=== PATIENT | male | born 1975 | race Native Hawaiian/Other Pacific Islander ===

== ENCOUNTER 2018-07-01 08:09 | Emergency (ER) | payer SELFPAY ==
--- NOTE | 2018-07-01 09:33 | XRay Report ---
ROUTINE CHEST, TWO VIEWS: HISTORY: Cough, congestion. There is a small lingular opacity which could represent a very early infiltrate or segmental atelectasis. The remainder of the left lung and right lung are clear. No pleural effusion or pneumothorax. Normal heart and mediastinal structures. Normal bony thorax. IMPRESSION: Subtle lingular opacity. Correlate for early pneumonia. This could also represent segmental atelectasis or scarring.
[2018-07-01 10:39] VITALS: BP 152/109
--- NOTE | 2018-07-01 11:15 | Emergency Department Report ---
- General Chief Complaint: Upper Respiratory Infection Stated Complaint: COUGHING FOR 2 WEEKS Time Seen by Provider: 07/01/18 11:01 Source: patient Mode of arrival: Ambulatory Limitations: No Limitations - History of Present Illness Initial Comments: Patient is a 43 years old male, nontoxic with no significant past medical history. Patient presented to the ER complaining of two-week history of cough, productive with greenish sputum. Patient stated that he has been having chills but no fever. Patient denied any nausea or vomiting. Not any chest pain or shortness of breath. MD Complaint: cough - Related Data Allergies Allergy/AdvReac Type Severity Reaction Status Date / Time No Known Allergies Allergy Unverified 07/01/18 08:44 ED Review of Systems ROS: Stated complaint: COUGHING FOR 2 WEEKS Other details as noted in HPI Comment: All other systems reviewed and negative Constitutional: chills. denies: fever Respiratory: cough. denies: shortness of breath, SOB with exertion, wheezing Cardiovascular: denies: chest pain, palpitations Gastrointestinal: denies: abdominal pain, nausea, vomiting Musculoskeletal: denies: back pain Neurological: denies: headache, weakness ED Past Medical Hx - Past Medical History Previous Medical History?: No - Surgical History Past Surgical History?: Yes Additional Surgical History: tonsillectomy - Social History Smoking Status: Unknown if ever smoked ED Physical Exam - General Limitations: No Limitations General appearance: alert, in no apparent distress - Head Head exam: Present: atraumatic, normocephalic, normal inspection - Eye Eye exam: Present: normal appearance - ENT ENT exam: Present: normal exam, normal orophraynx, mucous membranes moist - Neck Neck exam: Present: normal inspection, full ROM. Absent: tenderness, meningismus, lymphadenopathy, thyromegaly - Respiratory Respiratory exam: Present: normal lung sounds bilaterally. Absent: respiratory distress, wheezes, rales - Cardiovascular Cardiovascular Exam: Present: regular rate, normal rhythm, normal heart sounds - GI/Abdominal GI/Abdominal exam: Present: soft, normal bowel sounds. Absent: distended, tenderness, guarding, rebound, rigid, organomegaly, mass, bruit, pulsatile mass - Extremities Exam Extremities exam: Present: normal inspection, full ROM, normal capillary refill. Absent: pedal edema, calf tenderness - Back Exam Back exam: Present: normal inspection, full ROM. Absent: tenderness, CVA tenderness (R), CVA tenderness (L), muscle spasm, paraspinal tenderness, vertebral tenderness - Neurological Exam Neurological exam: Present: alert, oriented X3, CN II-XII intact, normal gait, reflexes normal - Skin Skin exam: Present: warm, intact, normal color ED Course Vital Signs 07/01/18 07/01/18 08:39 10:37 Temperature 98.8 F 98.4 F Pulse Rate 90 88 Respiratory 16 17 Rate Blood Pressure 133/96 152/109 [Left] O2 Sat by Pulse 100 97 Oximetry ED Medical Decision Making - Radiology Data Radiology results: report reviewed Chest x-ray show lingular opacity which may represent early pneumonia. - Medical Decision Making Patient prescribed Zithromax and Robitussin. I started patient on lisinopril for high blood pressure and advised him to follow-up with [facility] for further management. Critical care attestation.: If time is entered above; I have spent that time in minutes in the direct care of this critically ill patient, excluding procedure time. ED Disposition Clinical Impression: Pneumonia, Hypertension Disposition: DC-01 TO HOME OR SELFCARE Is pt being admited?: No Condition: Stable Instructions: Community-acquired Pneumonia (ED), Hypertension (ED) Referrals: KIERRA NGUYEN MD [Primary Care Provider] - 3-5 Days Forms: Work/School Release Form(ED)
== END 2018-07-01 11:47 | disposition home or self-care (01) ==
LOC: ED 08:09
DX: J18.9 Pneumonia, unspecified organism (principal); I10 Essential (primary) hypertension; Z90.89 Acquired absence of other organs
CPT/HCPCS: 71046

== ENCOUNTER 2018-09-03 13:36 | Emergency (ER) | payer OTHER ==
--- NOTE | 2018-09-03 14:43 | Event Note ---
ED Screening Note ED Screening Note: recent pna cough green phlegm no fever or chills pmh denies but chart indicates htn quit smoking 5 m ago This initial assessment/diagnostic orders/clinical plan/treatment(s) is/are subject to change based on patients health status, clinical progression and re- assessment by fellow clinical providers in the ED. Further treatment and workup at subsequent clinical providers discretion. Patient/guardian urged not to elope from the ED as their condition may be serious if not clinically assessed and managed. Initial orders include: xray
[2018-09-03 14:56] VITALS: BP 166/106
--- NOTE | 2018-09-03 15:38 | XRay Report ---
PA AND LATERAL CXR HISTORY: Cough. COMPARISON: 07/01/2018 FINDINGS: Cardiomediastinal silhouette: Normal cardiac size. Normal mediastinal contours. Lungs: Normal expansion. The previously described lingular opacity has resolved. A single band of le ft lower lobe subsegmental atelectasis. No airspace disease. No pleural effusions. No pneumothorax. Pulmonary vascularity: Normal. Support hardware: None. Additional findings: None. IMPRESSION: 1. Minimal left lower lobe subsegmental atelectasis. 2. No pneumonia. Signer Name: William Bullard MD Signed: 09/03/2018 3:34 PM Workstation Name: [id number]
[2018-09-03 16:10] LABS: Hematocrit 42.3 % (35.5-45.6); Hemoglobin 14.3 gm/dl (11.8-15.2); Mean Corpuscular HGB Conc 34 % (32-34); Mean Corpuscular Volume 89 fl (84-94); Platelet Count 241 K/mm3 (140-440); Red Blood Count 4.76 M/mm3 (3.65-5.03); Red Cell Distribution Width 14.8 % (13.2-15.2)
[2018-09-03 16:24] LABS: BUN/Creatinine Ratio 22; Blood Urea Nitrogen 20 mg/dL (9-20); Calcium 9.1 mg/dL (8.4-10.2); Hemolysis Index 174
--- NOTE | 2018-09-03 17:54 | Emergency Department Report ---
Minor Respiratory - HPI Chief Complaint: Upper Respiratory Infection Stated Complaint: COUGH Time Seen by Provider: 09/03/18 14:42 Duration: 5 Days Minor Respiratory: Yes Able to Tolerate Fluids, Yes Cough, No Rhinorrhea, No Sore Throat, No Ear Pain, No Sick Contacts, No Hemoptysis, No Chest Pain, No Shortness of Breath, No Fever Other History: 43-year-old male comes in for cough for 2 weeks. Patient reports he had pneumonia 4 months ago. Patient reports that he doesn't feel bad at all. Patient reports is eating well drinking well has had no fever no chills no nausea no vomiting. ED Review of Systems ROS: Stated complaint: COUGH Other details as noted in HPI Comment: All other systems reviewed and negative ED Past Medical Hx - Past Medical History Additional medical history: PNEUMONIA - Surgical History Past Surgical History?: No Additional Surgical History: tonsillectomy - Social History Smoking Status: Former Smoker Substance Use Type: None - Medications Home Medications: Home Medications Medication Instructions Recorded Confirmed Last Taken Type Azithromycin [Zithromax Z-MACHELLE] 250 mg PO DAILY 1 Days tab 07/01/18 Unknown Rx Lisinopril/Hydrochlorothiazide 1 each PO DAILY #30 tablet 07/01/18 Unknown Rx [Zestoretic 10-12.5 mg Tablet] guaiFENesin [Robitussin] 5 ml PO TID PRN #100 ml 07/01/18 Unknown Rx Cetirizine HCl [Zyrtec 10mg tab] 10 mg PO QDAY #30 tablet 09/03/18 Unknown Rx amLODIPine [Norvasc] 5 mg PO DAILY #30 tab 09/03/18 Unknown Rx Minor Respiratory Exam - Exam General: Vital signs noted. No distress. Alert and acting appropriately. HEENT: Yes Moist Mucous Membranes, No Pharyngeal Erythema, No Pharyngeal Exudates, No Rhinorrhea, No Conjuctival Injection, No Frontal Tenderness, No Maxillary Tenderness Ear: Neither TM Bulge, Neither TM Erythema, Neither EAC Pain, Neither EAC Discharge Neck: Yes Supple, No Adenopathy Lungs: Yes Good Air Exchange, No Wheezes, No Ronchi, No Stridor, No Cough, No Labored Respirations, No Retractions, No Use of Accessory Muscles, No Other Abnormal Lung Sounds Heart: Yes Regular, No Murmur Abdomen: Yes Normal Bowel Sounds, No Tenderness, No Peritoneal Signs Neurologic: Alert and oriented, no deficits. Musculoskeletal: Unremarkable. ED Course Vital Signs 09/03/18 14:54 Temperature 98.2 F Pulse Rate 91 H Respiratory 18 Rate Blood Pressure 166/106 O2 Sat by Pulse 97 Oximetry ED Medical Decision Making - Lab Data Result diagrams: 09/03/18 15:50 09/03/18 15:50 - Radiology Data Radiology results: report reviewed Patient: CECE ORELLANA MR#: [id number] : 1975 Acct:[id number] Age/Sex: 43 / M ADM Date: 09/03/18 Loc: ED Attending Dr: Ordering Physician: LOPEZ DIAZ Date of Service: 09/03/18 Procedure(s): XR chest routine 2V Accession Number(s): [id number] cc: LOPEZ DIAZ Fluoro Time In Minutes: PA AND LATERAL CXR HISTORY: Cough. COMPARISON: 07/01/2018 FINDINGS: Cardiomediastinal silhouette: Normal cardiac size. Normal mediastinal contours. Lungs: Normal expansion. The previously described lingular opacity has resolved. A single band of left lower lobe subsegmental atelectasis. No airspace disease. No pleural effusions. No pneumothorax. Pulmonary vascularity: Normal. Support hardware: None. Additional findings: None. IMPRESSION: 1. Minimal left lower lobe subsegmental atelectasis. 2. No pneumonia. Signer Name: Frankie Vogt MD Signed: 09/03/2018 3:34 PM Workstation Name: [id number] Transcribed By: REF Dictated By: FRANKIE VOGT MD Electronically Authenticated By: FRANKIE VOGT MD Signed Date/Time: 09/03/18 1534 DD/ 1530 TD/TT: - Medical Decision Making Patient has been evaluated by this provider and [facility]. Patient is a 43-year-old male does come in for cough 2 weeks. Patient is taking Robitussin. Chest x- ray is negative for any pneumonia. Patient be discharged home on Zyrtec's and to follow-up with her primary care provider. Patient does have a history of hypertension has not been taking his lisinopril or thiazide. Patient will be given a prescription and to follow-up with a primary care provider. Critical care attestation.: If time is entered above; I have spent that time in minutes in the direct care of this critically ill patient, excluding procedure time. ED Disposition Clinical Impression: Cough HTN (hypertension) Qualifiers: Hypertension type: unspecified Qualified Code(s): I10 - Essential (primary) hypertension Disposition: TO HOME OR SELFCARE Is pt being admited?: No Does the pt Need Aspirin: No Condition: Stable Instructions: Hypertension (ED) Additional Instructions: He is take medications as prescribed. Follow up with her primary care provider I have listed one below for your convenience. Prescriptions: amLODIPine [Norvasc] 5 mg PO DAILY #30 tab Cetirizine HCl [Zyrtec 10mg tab] 10 mg PO QDAY #30 tablet Referrals: ISREAL VEGA JR, MD [Staff Physician] - 3-5 Days
== END 2018-09-03 18:02 | disposition home or self-care (01) ==
LOC: ED 13:36
DX: R05 Cough (principal); I10 Essential (primary) hypertension
CPT/HCPCS: 36415; 71046; 80048; 85027